=== PATIENT | male | born 1945 | race Caucasian/White ===

== ENCOUNTER 2023-03-08 11:29 | Day surgery (SDC) | payer MEDICARE ==
[~2023-03-08] VITALS: Ht 172.7 cm; Wt 75.2 kg
[2023-03-08 11:50] VITALS: BP 169/107; PULSE 70; RESP 16; TEMP 98.6; O2SAT 94
[2023-03-08] MEDS ORDERED: MIRT-87 PO (11:50)
[2023-03-08] MEDS ORDERED: TRAM50TA2 PO (11:50)
[2023-03-08] MEDS ORDERED: CLON0.1T2 PO (11:52)
[2023-03-08 13:25] VITALS: BP 174/115; PULSE 69; O2SAT 97
[2023-03-08 13:30] VITALS: BP 175/98; PULSE 58; RESP 16; O2SAT 97
== END 2023-03-08 13:57 | disposition home or self-care (01) ==
LOC: SSTAY O 11:29
PROVIDERS: ATTEND Radiology Vascular & Interventional Radiology
DX: K11.8 Other diseases of salivary glands (principal); D11.0 Benign neoplasm of parotid gland; Z79.899 Other long term (current) drug therapy; F12.90 Cannabis use, unspecified, uncomplicated
CPT/HCPCS: 20206; 42400; 76942; A6449